=== PATIENT | male | born 1955 | race Caucasian/White ===

== ENCOUNTER 2020-09-28 09:54 | Emergency (ER) | payer BC ==
[2020-09-28] MEDS ORDERED: Oxybutynin 5 MG TAB PO SCH (10:30)
[2020-09-28 10:36] LABS: Bilirubin Neg (Negative); Blood, Urine 150 (Negative); Clarity Clear (Clear); Glucose, Urine (Dipstick) Normal (Negative); Ketone, Urine Negative (Negative); Leukocyte 25 (Negative); Nitrite Negative (Negative); Protein, Urine (Dipstick) Negative (Neg-Trace); Urobilinogen Normal mg/dL (Less than 2)
[2020-09-28 10:53] LABS: Bacteria/HPF None Seen HPF (None Seen); Squamous Epithelial None Seen HPF (0-3); WBC/HPF None Seen HPF (0-3)
== END 2020-09-28 11:48 | disposition home or self-care (01) ==
LOC: CSHERS 09:54
DX: N32.89 Other specified disorders of bladder (principal); R33.9 Retention of urine, unspecified; K21.9 Gastro-esophageal reflux disease without esophagitis
CPT/HCPCS: 81003; 81015; 87086; 99283

== ENCOUNTER 2024-02-29 12:13 | Outpatient (CLI) | payer BC, MEDICARE | END 2024-02-29 12:14 | disposition home or self-care (01) | LOC: CSHULT 12:13 | PROVIDERS: ATTEND Family Medicine | DX: L65.9 Nonscarring hair loss, unspecified (principal) | CPT/HCPCS: 93925 ==